=== PATIENT | female | born 1990 | race Caucasian/White ===

== ENCOUNTER 2017-05-07 20:34 | Emergency (ER) | payer OTHER ==
[~2017-05-07] VITALS: Ht 170.2 cm; Wt 72.6 kg
[~2017-05-07 20:34] MED LIST: BIRTH CONTROL PILLS; ERYTHROMYC1 APPLICAT LEFT EYE; NOHOMEMEDS; PROMETHAZINE HC25 M1 PO
[2017-05-07 21:02] LABS: ADD MIUA? YES; BILIRUBIN NEGATIVE; BLOOD LARGE; COLOR YELLOW ((YELLOW)); GLUCOSE (STRIP) NEGATIVE; KETONES NEGATIVE; LEUKOCYTES NEGATIVE; NITRITE NEGATIVE; PROTEIN (STRIP) 100; SPECIFIC GRAVITY 1.027 (1.000-1.030); UROBILINOGEN 0.2 MG/DL (0.2-1.0)
[2017-05-07 21:08] LABS: HEMATOCRIT 38.2 % (36.0-46.0); MCH 28.8 PG (29.0-34.0); MCHC 32.7 G/DL (30.0-36.0); PLATELET COUNT 256 K/uL (156-360); RBC DIS.WIDTH-CV 12.5 % (11.8-14.6); RBC DIS.WIDTH-SD 40.3 % (39-53); RED BLOOD COUNT 4.34 M/uL (3.80-5.20); WHITE BLOOD COUNT 8.4 K/uL (4.1-10.2)
[2017-05-07 21:18] LABS: CHLORIDE 103 mEq/L (99-109); POTASSIUM 4.6 mEq/L (3.7-5.4); SODIUM 139 mEq/L (136-147)
[2017-05-07 21:20] LABS: GLUCOSE 97 mg/dL (70-99)
[2017-05-07 21:21] LABS: ANION GAP 12 MEQ/L (2-14)
[2017-05-07 21:22] LABS: TOTAL BILIRUBIN 0.4 mg/dL (0.0-1.0)
[2017-05-07 21:24] LABS: ALKALINE PHOSPHATASE 85 IU/L (3-129); GFR ESTIMATE (CALCULATED) > 59 mL/min/
[2017-05-07 21:25] LABS: UREA NITROGEN (BUN) 18 mg/dL (9-23)
[2017-05-07 21:27] LABS: LIPASE 26 U/L (1.0-51.0)
[2017-05-07 21:37] LABS: QUANTITATIVE HCG < 4.0 MIU/ML
[2017-05-07 21:41] LABS: EPITHELIAL CELLS 2+ /HPF; MUCUS 2+ /LPF; RED BLOOD CELLS TNTC /HPF (0-5)
[2017-05-07 21:42] LABS: BACTERIA 1+ /HPF; UCUL ADDED? YES; WHITE BLOOD CELLS 0-5 /HPF (0-5)
[2017-05-07 21:43] LABS: CASTS NONE SEEN /LPF; CRYSTALS NONE SEEN
[2017-05-07] MEDS ORDERED: ZOFRAN4 MG PO (22:04)
[2017-05-07] MEDS ORDERED: PERCOCET 5/31 TABLET PO (22:04)
[2017-05-07] MEDS ORDERED: FLOMAX0.4 MG PO (22:05)
[2017-05-07 22:33] VITALS: BP 128/62
== END 2017-05-07 22:34 | disposition home or self-care (01) ==
LOC: EME 20:34
DX: N20.0 Calculus of kidney (principal); Z87.891 Personal history of nicotine dependence
CPT/HCPCS: 80053; 81003; 83690; 84702; 85027; 87086; 99281; 99284

== ENCOUNTER 2017-09-02 19:48 | Emergency (ER) | payer OTHER ==
[~2017-09-02] VITALS: Ht 170.2 cm; Wt 76.2 kg
[~2017-09-02 19:48] MED LIST changes: -NAPROSYN500 MG PO
[2017-09-02 20:07] LABS: HEMATOCRIT 39.1 % (36.0-46.0); HEMOGLOBIN 13.3 G/DL (11.9-15.5); MCH 29.9 PG (29.0-34.0); MCV 87.9 FL (83-99); PLATELET COUNT 296 K/uL (156-360); RBC DIS.WIDTH-CV 12.6 % (11.8-14.6); RBC DIS.WIDTH-SD 40.3 % (39-53); RED BLOOD COUNT 4.45 M/uL (3.80-5.20); WHITE BLOOD COUNT 8.2 K/uL (4.1-10.2)
[2017-09-02 20:14] LABS: ALBUMIN 4.3 g/dL (3.2-4.8)
[2017-09-02 20:15] LABS: CHLORIDE 104 mEq/L (99-109); POTASSIUM 4.2 mEq/L (3.7-5.4); SODIUM 138 mEq/L (136-147)
[2017-09-02 20:17] LABS: GLUCOSE 89 mg/dL (70-99); TOTAL PROTEIN 7.5 g/dL (6.4-8.3)
[2017-09-02 20:19] LABS: TOTAL BILIRUBIN 0.2 mg/dL (0.0-1.0)
[2017-09-02 20:20] LABS: ALKALINE PHOSPHATASE 87 IU/L (3-129)
[2017-09-02 20:21] LABS: CREATININE 0.7 mg/dL (0.6-1.3); GFR ESTIMATE (CALCULATED) > 59 mL/min/
[2017-09-02 20:22] LABS: AST (GOT) 16 IU/L (2-34); UREA NITROGEN (BUN) 14 mg/dL (9-23)
[2017-09-02 20:24] LABS: ALT (GPT) 14 IU/L (3-49)
[2017-09-02 20:29] LABS: QUANTITATIVE HCG < 4.0 MIU/ML
[2017-09-02 21:31] LABS: APPEARANCE CLEAR ((CLEAR)); BILIRUBIN NEGATIVE; BLOOD MODERATE; COLOR STRAW ((YELLOW)); GLUCOSE (STRIP) NEGATIVE; KETONES NEGATIVE; LEUKOCYTES NEGATIVE; NITRITE NEGATIVE; PROTEIN (STRIP) NEGATIVE; SPECIFIC GRAVITY 1.032 (1.000-1.030); UROBILINOGEN 0.2 MG/DL (0.2-1.0)
[2017-09-02 21:37] LABS: BACTERIA NONE SEEN /HPF; EPITHELIAL CELLS RARE /HPF; MUCUS NONE SEEN /LPF; RED BLOOD CELLS 0-5 /HPF (0-5); UCUL ADDED? NO; WHITE BLOOD CELLS 0-5 /HPF (0-5)
[2017-09-02] MEDS ORDERED: NAPROSYN500 MG PO (21:57)
[2017-09-02] MEDS ORDERED: FLOMAX0.4 MG PO (21:57)
[2017-09-02 22:12] VITALS: BP 119/89
== END 2017-09-02 22:13 | disposition home or self-care (01) ==
LOC: EME 19:48
DX: N20.0 Calculus of kidney (principal); K38.9 Disease of appendix, unspecified; Z87.442 Personal history of urinary calculi; Z87.891 Personal history of nicotine dependence
CPT/HCPCS: 80053; 81003; 84702; 85027; J1885

== ENCOUNTER → 2017-09-02 | Outpatient (CLI) | payer OTHER ==
[~2017-09-02] MED LIST changes: +FLOMAX0.4 MG PO; +NAPROSYN500 MG PO; +PERCOCET 5/31 TABLET PO; +ZOFRAN4 MG PO
== END | disposition home or self-care (01) ==
LOC: RAD 16:49
DX: N28.89 Other specified disorders of kidney and ureter (principal); R93.5 Abnormal findings on diagnostic imaging of other abdominal regions, including retroperitoneum
CPT/HCPCS: 74177

== ENCOUNTER 2017-10-10 03:54 | Emergency (ER) | payer OTHER ==
[~2017-10-10] VITALS: Ht 170.2 cm; Wt 74.8 kg
[~2017-10-10 03:54] MED LIST changes: +NAPROSYN500 MG PO
[2017-10-10 03:58] VITALS: BP 127/78
[2017-10-10 04:13] LABS: HEMATOCRIT 37.4 % (36.0-46.0); HEMOGLOBIN 12.8 G/DL (11.9-15.5); MCH 29.8 PG (29.0-34.0); MCHC 34.2 G/DL (30.0-36.0); PLATELET COUNT 230 K/uL (156-360); RBC DIS.WIDTH-CV 13.2 % (11.8-14.6); RBC DIS.WIDTH-SD 41.7 % (39-53)
[2017-10-10 04:23] LABS: ALBUMIN 4.2 g/dL (3.2-4.8); CHLORIDE 105 mEq/L (99-109); POTASSIUM 3.8 mEq/L (3.7-5.4); SODIUM 138 mEq/L (136-147)
[2017-10-10 04:24] LABS: APPEARANCE SL.HAZY ((CLEAR)); BILIRUBIN NEGATIVE; BLOOD LARGE; COLOR YELLOW ((YELLOW)); GLUCOSE (STRIP) NEGATIVE; KETONES NEGATIVE; LEUKOCYTES TRACE; NITRITE NEGATIVE; PROTEIN (STRIP) 100; SPECIFIC GRAVITY 1.025 (1.000-1.030); UROBILINOGEN 0.2 MG/DL (0.2-1.0)
[2017-10-10 04:26] LABS: GLUCOSE 103 mg/dL (70-99); TOTAL PROTEIN 7.2 g/dL (6.4-8.3)
[2017-10-10 04:28] LABS: TOTAL BILIRUBIN 0.4 mg/dL (0.0-1.0)
[2017-10-10 04:29] LABS: ALKALINE PHOSPHATASE 81 IU/L (3-129); CREATININE 0.8 mg/dL (0.6-1.3); GFR ESTIMATE (CALCULATED) > 59 mL/min/
[2017-10-10 04:30] LABS: UREA NITROGEN (BUN) 18 mg/dL (9-23)
[2017-10-10 04:31] LABS: AST (GOT) 16 IU/L (2-34)
[2017-10-10 04:32] LABS: ALT (GPT) 15 IU/L (3-49)
[2017-10-10 04:38] LABS: QUANTITATIVE HCG < 4.0 MIU/ML
[2017-10-10 05:09] LABS: BACTERIA 2+ /HPF; EPITHELIAL CELLS 2+ /HPF; MUCUS 3+ /LPF; UCUL ADDED? YES
== END 2017-10-10 04:30 | disposition left against medical advice (07) ==
LOC: EME 03:54
DX: R10.9 Unspecified abdominal pain (principal); Z53.21 Procedure and treatment not carried out due to patient leaving prior to being seen by health care provider
CPT/HCPCS: 80053; 81003; 84702; 85027; 87086